=== PATIENT | male | born 1945 | race Caucasian/White ===

== ENCOUNTER 2017-09-07 15:00 | Inpatient (IN) | payer MEDICARE, SELFPAY ==
[2017-09-07 16:26] LABS: #Basophils 0.1 thou/uL (0.0-0.2); #Lymphocytes 1.6 thou/uL (1.20-3.40); #Monocytes 0.6 thou/uL (0.11-0.59); #Neutrophils 4.6 thou/uL (1.40-6.50); %Basophils 1.1 % (0.0-1.0); %Eosinophils 0.4 % (0.0-10.0); %Lymphocytes 23.1 % (21.0-51.0); %Monocytes 9.2 % (0.0-10.0); %Neutrophils 66.3 % (42.0-75.0); Hemoglobin 17.4 g/dL (14.0-18.0); Mean Corpuscular HGB CONC 34.2 g/dL (32.0-36.0); Mean Corpuscular Hemoglobin 35.4 pg (27.0-31.0); Mean Platelet Volume 6.3 fL (7.4-10.4); Platelet Count 263 thou/uL (130-400); RBC Distribution Width 12.3 % (11.5-14.5); Red Blood Cell (RBC) Count 4.91 mill/uL (4.70-6.10)
[2017-09-07 16:34] LABS: Osmolality, Serum 237 mOsm/kg (280-295)
[2017-09-07 16:44] LABS: Anion Gap 13 mmol/L (10-20); BUN (Urea Nitrogen) 9 mg/dL (8.4-25.7); Calc. Creatinine Clearance 0 mL/min (70-130); Calcium 9.4 mg/dL (7.8-10.44); Carbon Dioxide 23 mmol/L (23-31); Chloride 82 mmol/L (98-107); Estimated GFR-MDRD Greater than 90; Glucose 90 mg/dL (83-110); Potassium 4.2 mmol/L (3.5-5.1)
[2017-09-07 16:48] LABS: Sodium 114 mmol/L (136-145)
[2017-09-07] MEDS ORDERED: Acetaminophen 325 MG TAB PO PRN (20:04)
[2017-09-07] MEDS ORDERED: Senokot 8.6 MG TAB PO PRN (20:04)
[2017-09-07] MEDS ORDERED: Guaifenesin DM 100-10/5 ML UDCUP PO PRN (20:04)
[2017-09-07] MEDS ORDERED: Multivitamins, Adult 10 ML, Folic Acid 1 MG, Thiamine HCl 100 MG in Dextrose 5 %-0.45 %... IV SCH ×4 (21:00)
[2017-09-07] MEDS: Lisinopril 10 MG TAB PO SCH (21:46)
[2017-09-07] MEDS: Famotidine 20 MG TAB PO SCH (21:46)
[2017-09-07] MEDS: Nicotine 21 MG PATCH TD SCH (21:46)
[2017-09-07] MEDS: Tamsulosin HCl 0.4 MG CAP PO SCH (21:47)
--- NOTE | 2017-09-07 23:29 | HP ---
REASON FOR ADMISSION: Hyponatremia, possible alcohol withdrawal. HISTORY OF PRESENTING ILLNESS: The patient states he had gone to see his primary care physician on Sunday Dr. Ghosh in [place], [place]. The reason he went was his blood pressure was erratic at home. So, he had his blood work done on Sunday. The results came back this morning and his primary care physician was concerned that his sodium was very low and asked him to go to the emergency room immediately. He went to [facility] from where he was transferred here for sodium of 114. The patient admits to drinking 8 beers a day and he starts around 12:00 noon. He states he is cutting down on his drinking. Prior to this, he was waking up around 8 to 8:30 and start to drink from 9:00 a.m. on. He states he has been doing this from the age of 19 years or so. He also smokes a pack of cigarettes a day. Has no complaints of any specific weakness as such, but his at bedside mentions that he has been feeling a bit dizzy and is also having increased tremor per . No complaints of chest pain or shortness of breath. No history of prior stroke. PAST MEDICAL AND SURGICAL HISTORY: Hypertension, lumbar spine surgery in the past. No prior history of stroke, dyslipidemia or coronary artery disease per patient. CURRENT MEDICATIONS: Norvasc 2.5 mg p.o. daily, which was started from Sunday; lisinopril 30 mg p.o. daily. ALLERGIES: No known drug allergies. PERSONAL HISTORY: Smokes one pack a day, drinks 8 beers a day. Does not abuse drugs. Lives with his . FAMILY HISTORY: Mom in her 90s and has had history of PR. Father was killed in a train accident. REVIEW OF SYSTEMS: The following complete review of systems was negative, unless otherwise mentioned in the HPI or below: Constitutional: Weight loss or gain, ability to conduct usual activities. Skin: Rash, itching. Eyes: Double vision, pain. ENT/Mouth: Nose bleeding, neck stiffness, pain, tenderness. Cardiovascular: Palpitations, dyspnea on exertion, orthopnea. Respiratory: Shortness of breath, wheezing, cough, hemoptysis, fever or night sweats. Gastrointestinal: Poor appetite, abdominal pain, heartburn, nausea, vomiting, constipation, or diarrhea. Genitourinary: Urgency, frequency, dysuria, nocturia. Musculoskeletal: Pain, swelling. Neurologic/Psychiatric: Anxiety, depression. Allergy/Immunologic: Skin rash, bleeding tendency. PHYSICAL EXAMINATION: GENERAL: The patient is a 71-year-old male, who is currently not in any acute distress. VITAL SIGNS: Blood pressure 180/66, pulse 80 per minute, respiratory rate 16 per minute, temperature 98.2 degrees Fahrenheit, saturating 98% on room air. NECK: Supple, no elevated JVD. HEENT: Eyes: Extraocular muscles are intact. Pupils are reacting to light. Oral cavity: Mucous membranes are dry. No exudates or congestion. CARDIOVASCULAR SYSTEM: S1 and S2 heard. Regular rhythm. RESPIRATORY SYSTEM: Air entry 1+ bilateral. Scattered rhonchi plus bilateral. ABDOMEN: Soft, bowel sounds heard. No tenderness, rigidity or guarding. EXTREMITIES: No peripheral edema or calf tenderness. VASCULAR SYSTEM: Peripheral pulses 1+ bilateral. No ischemic ulcerations or gangrene. CENTRAL NERVOUS SYSTEM: No gross focal deficits seen. The patient is fairly oriented. He has some intentional tremor, which he states it has been chronic, but at bedside states it is kind of a little worse than his usual. PSYCHIATRIC SYSTEM: The patient is a bit anxious, otherwise no hallucinations or delusions. LABORATORY DATA: Sodium 114, potassium 4.2, serum bicarbonate 23, chloride 82. BUN 9, creatinine 0.8, glucose 90. Serum osmolality 237. Urine osmolality 214. AST 45, ALT 35, total bilirubin 0.8, albumin is 4.2, lipase is 73. MCV is 104, H&H 17 and 50, platelet count 263, white count of 7 with 66% neutrophils. CLINICAL IMPRESSION AND PLAN: The patient will be admitted to medical floor for severe hyponatremia, possible alcohol withdrawal with early tremors, uncontrolled hypertension. He will be on fluid restriction and his hyponatremia likely is due to his drinking beer, almost 8-10 beers a day. He was a heavy drinker before and is cutting down number at present. He will be on fluid restriction up to 1200 mL per day. We will also obtain an MRI of the brain to rule out cerebrovascular accident. Echo for LV function. Of late, the patient has had some issues with passing urine per and we will obtain PSA levels as well. He will be on Flomax for the same. He will be on ASE protocol, banana bag at 40 mL an hour. Nicotine patch 21 mg transdermal daily, DuoNebs q.6 hourly We will closely monitor him to prevent florid alcohol withdrawal and delirium. I have explained the withdrawal symptoms to his and children at bedside. The patient has determined to quit alcohol drinking. We will continue to closely monitor him on medical floor. DONATO
[2017-09-07 23:57] LABS: Anion Gap 13 mmol/L (10-20); BUN (Urea Nitrogen) 10 mg/dL (8.4-25.7); Calc. Creatinine Clearance 90 mL/min (70-130); Carbon Dioxide 23 mmol/L (23-31); Chloride 83 mmol/L (98-107); Estimated GFR-MDRD Greater than 90; Glucose 117 mg/dL (83-110)
[2017-09-08 00:09] LABS: Sodium 115 mmol/L (136-145)
[2017-09-08] MEDS: FOLIC ACID IVPB SCH ×12 (00:14→22:04)
[2017-09-08] MEDS: MULTIVITAMINS IVPB SCH ×12 (00:14→22:04)
[2017-09-08] MEDS: THIAMINE HCL IVPB SCH ×12 (00:14→22:04)
[2017-09-08] MEDS: [UNRECOGNIZED DRUG - OTHER] IVPB SCH ×12 (00:14→22:04)
[2017-09-08 05:20] LABS: #Basophils 0.1 thou/uL (0.0-0.2); #Lymphocytes 2.2 thou/uL (1.20-3.40); #Monocytes 0.9 thou/uL (0.11-0.59); #Neutrophils 4.1 thou/uL (1.40-6.50); %Basophils 1.3 % (0.0-1.0); %Eosinophils 0.7 % (0.0-10.0); %Lymphocytes 29.5 % (21.0-51.0); %Monocytes 12.2 % (0.0-10.0); %Neutrophils 56.3 % (42.0-75.0); Hemoglobin 16.7 g/dL (14.0-18.0); Mean Corpuscular HGB CONC 35.2 g/dL (32.0-36.0); Mean Corpuscular Hemoglobin 36.2 pg (27.0-31.0); Mean Platelet Volume 6.6 fL (7.4-10.4); Platelet Count 258 thou/uL (130-400); RBC Distribution Width 12.1 % (11.5-14.5); Red Blood Cell (RBC) Count 4.63 mill/uL (4.70-6.10); White Blood Cell (WBC) Count 7.4 thou/uL (4.8-10.8)
[2017-09-08 05:49] LABS: Anion Gap 16 mmol/L (10-20); BUN (Urea Nitrogen) 9 mg/dL (8.4-25.7); Calc. Creatinine Clearance 93 mL/min (70-130); Calcium 9.4 mg/dL (7.8-10.44); Carbon Dioxide 22 mmol/L (23-31); Cardiac Risk 2.3 (Less than 4.5); Chloride 85 mmol/L (98-107); Cholesterol 108 mg/dl (< 200 Desired); Estimated GFR-MDRD Greater than 90; Glucose 100 mg/dL (83-110); HDL Cholesterol 46 mg/dL (>60 Neg Risk); LDL Cholesterol, Calculated 49 mg/dL; Potassium 3.9 mmol/L (3.5-5.1); Triglycerides 64 mg/dL (Less than 150)
[2017-09-08 05:51] LABS: Sodium 119 mmol/L (136-145)
--- NOTE | 2017-09-08 08:17 | CON ---
DATE OF CONSULTATION: 09/07/2017 CONSULTING PHYSICIAN: Madhuri Henderson M.D. REQUESTING PHYSICIAN: Lindsay Cat M.D. REASON FOR CONSULTATION: Hyponatremia. IMPRESSION: Severe hyponatremia. This is likely in the context of beer potomania, . PLAN: 1. Discontinue current IV fluids, which is relatively hypotonic; this solution is half normal saline . I would change this over to normal saline with thiamine. 2. Repeat sodium to be checked now. 3. If patient shows any neurologic symptoms. We will transfer patient to ICU and initiate hypertoni c saline. 4. We will change the diet to regular diet with increased amount of protein in the way of animal jong t. HISTORY OF PRESENT ILLNESS: History is that of a 71-year-old gentleman who has been drinking forever , sent over from the primary care physician with abnormal labs in this case hyponatremia. Patient dr inks about 5 to 6 cans of beer on daily basis according to him. Otherwise, the patient denies any ot her symptoms, denies any significant gait disturbance and mentating okay. As a result of this severe hyponatremia with a sodium of 114. Decision has been taken to involve Renal in the management of th is case. PAST MEDICAL HISTORY: Significant for alcohol abuse, hypertension. MEDICATIONS: Reviewed as documented on [employer]. ALLERGIES: No known drug allergies. FAMILY HISTORY: None significantly related to the presenting illness. PHYSICAL EXAMINATION: GENERAL: Patient was found not to be in any obvious distress. VITAL SIGNS: Afebrile with temperature 98.2, pulse 96, respiratory rate of 18, blood pressure 147/86 . HEENT: Unremarkable with moist oral mucosa. No conjunctival injection or icterus. NECK: Supple. CARDIOVASCULAR SYSTEM: First and second heart sounds were heard. RESPIRATORY SYSTEM: Clear to auscultation. DIGESTIVE SYSTEM: Revealed a benign abdomen with positive bowel sounds. EXTREMITIES: No peripheral edema. SKIN: No new gross rash. LYMPHATICS: No peripheral lymphadenopathy. SUMMARY: A 71-year-old gentleman with significant alcohol issues, who presented here as a transfer w ith severe hyponatremia. Thank you for this consultation. We will follow with you. Patient counseled on the need to stop dri nking heavy alcohol.
[2017-09-08] MEDS: Enoxaparin Sodium 40 MG/0.4 ML SYRINGE SC SCH (09:00)
[2017-09-08] MEDS: Amlodipine 10 MG TAB PO SCH (09:37)
[2017-09-08] MEDS: Famotidine 20 MG TAB PO SCH ×2 (09:38→20:44)
[2017-09-08] MEDS: Lisinopril 10 MG TAB PO SCH ×2 (09:38→20:44)
[2017-09-08] MEDS: Folic Acid 1 MG TAB PO SCH (10:00)
--- NOTE | 2017-09-08 13:12 | PDOC.PN ---
- Subjective Encounter Start Date: 09/08/17 Encounter Start Time: 12:00 Subjective: awake, responds well to verbal questions -: has tremors+ -: is amb in room - Objective Resuscitation Status: Resuscitation Status FULL:Full Resuscitation MAR Reviewed: Yes Vital Signs & Weight: Vital Signs (12 hours) Temp Pulse Resp BP BP BP Pulse Ox 09/08/17 09:38 148/75 H 09/08/17 09:37 77 148/75 H 09/08/17 08:02 77 16 97 09/08/17 08:00 98.2 F 89 16 09/08/17 07:39 98.2 F 89 16 148/75 H 98 09/08/17 04:00 98.6 F 94 20 159/85 H 159/85 H 98 09/08/17 03:00 94 L Weight Weight 164 lb 10.965 oz I&O: 09/07/17 09/08/17 09/09/17 06:59 06:59 06:59 Intake Total 1050 Balance 1050 Result Diagrams: 09/08/17 04:06 09/08/17 04:06 Phys Exam - Physical Examination HEENT: PERRLA, moist MMs Neck: no JVD, supple Respiratory: no wheezing, no rales Cardiovascular: RRR, no significant murmur Gastrointestinal: soft, non-tender, positive bowel sounds Musculoskeletal: no edema, pulses present Neurological: non-focal, moves all 4 limbs Psychiatric: A&O x 3 Dx/Plan (1) Hyponatremia Code(s): E87.1 - HYPO-OSMOLALITY AND HYPONATREMIA Status: Acute (2) Alcohol abuse Code(s): F10.10 - ALCOHOL ABUSE, UNCOMPLICATED Status: Chronic (3) Tobacco abuse Code(s): Z72.0 - TOBACCO USE Status: Chronic (4) HTN (hypertension) Code(s): I10 - ESSENTIAL (PRIMARY) HYPERTENSION Status: Chronic Qualifiers: Hypertension type: essential hypertension Qualified Code(s): I10 - Essential (primary) hypertension (5) BPH (benign prostatic hyperplasia) Code(s): N40.0 - BENIGN PROSTATIC HYPERPLASIA WITHOUT LOWER URINRY TRACT SYMP Status: Suspected Qualifiers: Lower urinary tract symptom presence: symptoms present Lower urinary tract symptom detail: unspecified Qualified Code(s): N40.1 - Benign prostatic hyperplasia with lower urinary tract symptoms - Plan is on normal saline @100mls/hr -: norvasc and lisinopril, htn is better controlled -: flomax -: watch for delerium/kriss withdrawal -: on ASE protocol for alc abuse, await MRI, echo results * . Review of Systems - Medications/Allergies Allergies/Adverse Reactions: Allergies Allergy/AdvReac Type Severity Reaction Status Date / Time No Known Drug Allergies Allergy Verified 09/07/17 21:56 Medications: Current Medications Acetaminophen (Tylenol) 650 mg PO Q4H PRN PRN Reason: Headache/Fever or Pain Albuterol/Ipratropium (Duoneb) 3 ml NEB [id number] [facility] Last Admin: 09/08/17 08:02 Dose: 3 ml Amlodipine Besylate (Norvasc) 10 mg PO DAILY [facility] Last Admin: 09/08/17 09:37 Dose: 10 mg Enoxaparin Sodium (Lovenox) 40 mg SC 0900 [facility] Last Admin: 09/08/17 09:00 Dose: Not Given Famotidine (Pepcid) 20 mg PO BID [facility] Last Admin: 09/08/17 09:38 Dose: 20 mg Folic Acid (Folvite) 1 mg PO DAILY [facility] Last Admin: 09/08/17 10:00 Dose: Not Given Guaifenesin/Dextromethorphan (Robitussin Dm) 15 ml PO Q4H PRN PRN Reason: Cough Thiamine HCl 100 mg/Multivitamins 10 ml/ Folic Acid 1 mg/ Sodium Chloride 1, 011.2 mls @ 100 mls/hr IVPB .Q10H7M [facility] Last Admin: 09/08/17 11:15 Dose: 1,011.2 mls Lisinopril (Zestril) 10 mg PO BID [facility] Last Admin: 09/08/17 09:38 Dose: 10 mg Nicotine (Nicoderm Patch) 21 mg TD Q24HR [facility] Last Admin: 09/07/17 21:46 Dose: 21 mg Senna (Senokot) 2 tab PO HSPRN PRN PRN Reason: Constipation Tamsulosin HCl (Flomax) 0.4 mg PO HS [facility] Last Admin: 09/07/17 21:47 Dose: Not Given Thiamine HCl (Thiamine) 100 mg PO DAILY [facility] Last Admin: 09/08/17 10:00 Dose: Not Given
--- NOTE | 2017-09-08 13:33 | MRI ---
MRI BRAIN NONCONTRAST: HISTORY: CVA. FINDINGS: No comparison. There is no evidence of acute intracranial hemorrhage or infarct. Chronic ischemic s mall-vessel disease is apparent throughout the periventricular white matter of each cerebral hemisphe re. A 0.9 cm arachnoid cyst abuts the posterior aspect of the falx, just to the right of midline at the frontoparietal level. Visualized paranasal sinuses remain well aerated. IMPRESSION: Chronic ischemic small-vessel disease. No acute intracranial abnormalities are demonstrated. POS: JESIKA
[2017-09-08] MEDS: Nicotine 21 MG PATCH TD SCH (20:40)
[2017-09-08] MEDS: Tamsulosin HCl 0.4 MG CAP PO SCH (20:44)
[2017-09-09 06:18] LABS: Anion Gap 12 mmol/L (10-20); BUN (Urea Nitrogen) 6 mg/dL (8.4-25.7); Calc. Creatinine Clearance 91 mL/min (70-130); Calcium 9.4 mg/dL (7.8-10.44); Carbon Dioxide 21 mmol/L (23-31); Chloride 100 mmol/L (98-107); Estimated GFR-MDRD Greater than 90; Glucose 114 mg/dL (83-110); Potassium 3.7 mmol/L (3.5-5.1); Sodium 129 mmol/L (136-145)
[2017-09-09] MEDS: Amlodipine 10 MG TAB PO SCH (08:17)
[2017-09-09] MEDS: Folic Acid 1 MG TAB PO SCH (08:17)
[2017-09-09] MEDS: Famotidine 20 MG TAB PO SCH ×2 (08:17→20:42)
[2017-09-09] MEDS: Enoxaparin Sodium 40 MG/0.4 ML SYRINGE SC SCH (08:17)
[2017-09-09] MEDS: [UNRECOGNIZED DRUG - OTHER] IVPB SCH ×4 (08:18)
[2017-09-09] MEDS: Lisinopril 10 MG TAB PO SCH ×2 (08:18→20:41)
[2017-09-09] MEDS: FOLIC ACID IVPB SCH ×4 (08:18)
[2017-09-09] MEDS: MULTIVITAMINS IVPB SCH ×4 (08:18)
[2017-09-09] MEDS: THIAMINE HCL IVPB SCH ×4 (08:18)
[2017-09-09 09:00] LABS: Magnesium 1.8 mg/dL (1.6-2.6); Phosphorus 3.4 mg/dL (2.3-4.7)
--- NOTE | 2017-09-09 15:02 | PDOC.PN ---
- Subjective Encounter Start Date: 09/09/17 Encounter Start Time: 15:00 Subjective: reports that he feels better.agreeable for Op detox but not rehab -: denies hallucinations. nursing reports better ASE score - Objective Resuscitation Status: Resuscitation Status FULL:Full Resuscitation MAR Reviewed: Yes Vital Signs & Weight: Vital Signs (12 hours) Temp Pulse Resp BP BP BP Pulse Ox 09/09/17 12:01 97.6 F 89 16 150/103 H 96 09/09/17 12:00 150/103 H 09/09/17 08:18 118/73 09/09/17 08:17 94 118/73 09/09/17 08:00 98.1 F 94 16 118/73 99 09/09/17 07:16 94 15 95 09/09/17 07:12 98.1 F 99 16 118/73 99 09/09/17 04:00 98.1 F 97 20 128/75 128/75 95 Weight Weight 164 lb 0.383 oz I&O: 09/08/17 09/09/17 09/10/17 06:59 06:59 06:59 Intake Total 1050 1400 Balance 1050 1400 Result Diagrams: 09/08/17 04:06 09/09/17 05:31 Additional Labs: Laboratory Tests 09/07/17 09/07/17 09/07/17 16:00 16:13 16:13 Serum Osmolality 237 L* Triglycerides Cholesterol LDL Cholesterol, Calc HDL Cholesterol Prostate Specific Ag 1.06 Urine Osmolality 214 L 09/08/17 04:06 Serum Osmolality Triglycerides 64 Cholesterol 108 LDL Cholesterol, Calc 49 HDL Cholesterol 46 Prostate Specific Ag Urine Osmolality Radiology Reviewed by me: Yes (MRI brain-chr ischemic changes) Phys Exam - Physical Examination Constitutional: NAD HEENT: PERRLA, moist MMs, sclera anicteric, oral pharynx no lesions Neck: no JVD Respiratory: no wheezing, clear to auscultation bilateral Cardiovascular: RRR, no significant murmur Gastrointestinal: soft, non-tender, no distention, positive bowel sounds Musculoskeletal: no edema, pulses present Neurological: non-focal, normal sensation, moves all 4 limbs Psychiatric: normal affect, A&O x 3 Skin: no rash Dx/Plan (1) Hyponatremia Code(s): E87.1 - HYPO-OSMOLALITY AND HYPONATREMIA Status: Acute (2) Alcohol abuse Code(s): F10.10 - ALCOHOL ABUSE, UNCOMPLICATED Status: Chronic (3) HTN (hypertension) Code(s): I10 - ESSENTIAL (PRIMARY) HYPERTENSION Status: Chronic Qualifiers: Hypertension type: essential hypertension Qualified Code(s): I10 - Essential (primary) hypertension (4) Tobacco abuse Code(s): Z72.0 - TOBACCO USE Status: Chronic (5) BPH (benign prostatic hyperplasia) Code(s): N40.0 - BENIGN PROSTATIC HYPERPLASIA WITHOUT LOWER URINRY TRACT SYMP Status: Suspected Qualifiers: Lower urinary tract symptom presence: symptoms present Lower urinary tract symptom detail: unspecified Qualified Code(s): N40.1 - Benign prostatic hyperplasia with lower urinary tract symptoms (6) Alcohol withdrawal Code(s): F10.239 - ALCOHOL DEPENDENCE WITH WITHDRAWAL, UNSPECIFIED Status: Suspected - Plan out of bed/ambulate, DVT proph w/SCDs cont ASE protocol.Sodium inproved w NS.nephrology following -: avoid benzodiazipines as no s/s of active ETOH withdrawl -: likley home tomorrow am if Sodium better * . Review of Systems - Review of Systems Constitutional: negative: fever, chills, sweats, weakness, malaise, other Respiratory: negative: Cough, Dry, Shortness of Breath, Hemoptysis, SOB with Excertion, Pleuritic Pain, Sputum, Wheezing Cardiovascular: negative: chest pain, palpitations, orthopnea, paroxysmal nocturnal dyspnea, edema, light headedness, other Gastrointestinal: negative: Nausea, Vomiting, Abdominal Pain, Diarrhea, Constipation, Melena, Hematochezia, Other Genitourinary: negative: Dysuria, Frequency, Incontinence, Hematuria, Retention , Other Musculoskeletal: negative: Neck Pain, Shoulder Pain, Arm Pain, Back Pain, Hand Pain, Leg Pain, Foot Pain, Other Neurological: negative: Weakness, Numbness, Incoordination, Change in Speech, Confusion, Seizures, Other - Medications/Allergies Allergies/Adverse Reactions: Allergies Allergy/AdvReac Type Severity Reaction Status Date / Time No Known Drug Allergies Allergy Verified 09/07/17 21:56 Medications: Current Medications Acetaminophen (Tylenol) 650 mg PO Q4H PRN PRN Reason: Headache/Fever or Pain Albuterol/Ipratropium (Duoneb) 3 ml NEB [id number] [facility] Last Admin: 09/09/17 07:16 Dose: 3 ml Amlodipine Besylate (Norvasc) 10 mg PO DAILY [facility] Last Admin: 09/09/17 08:17 Dose: 10 mg Enoxaparin Sodium (Lovenox) 40 mg SC 0900 [facility] Last Admin: 09/09/17 08:17 Dose: 40 mg Famotidine (Pepcid) 20 mg PO BID [facility] Last Admin: 09/09/17 08:17 Dose: 20 mg Folic Acid (Folvite) 1 mg PO DAILY [facility] Last Admin: 09/09/17 08:17 Dose: 1 mg Guaifenesin/Dextromethorphan (Robitussin Dm) 15 ml PO Q4H PRN PRN Reason: Cough Lisinopril (Zestril) 10 mg PO BID [facility] Last Admin: 09/09/17 08:18 Dose: 10 mg Nicotine (Nicoderm Patch) 21 mg TD Q24HR [facility] Last Admin: 09/08/17 20:40 Dose: 21 mg Senna (Senokot) 2 tab PO HSPRN PRN PRN Reason: Constipation Tamsulosin HCl (Flomax) 0.4 mg PO HS [facility] Last Admin: 09/08/17 20:44 Dose: 0.4 mg Thiamine HCl (Thiamine) 100 mg PO DAILY [facility] Last Admin: 09/09/17 08:18 Dose: 100 mg
--- NOTE | 2017-09-09 18:38 | PRG ---
DATE OF SERVICE: 09/09/2017 SUBJECTIVE: The patient was seen and examined with no new complaint noted with the following vital s igns. OBJECTIVE: VITAL SIGNS: Afebrile with temperature 97.6, pulse 89, respiratory rate 16, blood pressure 150/103. HEENT: Unremarkable with moist oral mucosa. Neck is supple. No conjunctival injection or icterus. CARDIOVASCULAR: First and second heart sounds were heard. RESPIRATORY: Clear to auscultation. DIGESTIVE: Revealed a benign abdomen with positive bowel sounds. EXTREMITIES: No peripheral edema. IMPRESSION: 1. Hyponatremia in the context of beer potomania, responded well to normal saline infusion. 2. Alcohol abuse. PLAN: 1. Discontinue IV fluid. 2. Advised/counseled on the need to discontinue this lifestyle of alcohol consumption. 3. From the renal standpoint, the patient is good for discharge.
[2017-09-09] MEDS: Tamsulosin HCl 0.4 MG CAP PO SCH (20:41)
[2017-09-09] MEDS: Nicotine 21 MG PATCH TD SCH (20:44)
[2017-09-10 05:50] VITALS: BMI 22.2
[2017-09-10 05:51] LABS: Anion Gap 13 mmol/L (10-20); BUN (Urea Nitrogen) 5 mg/dL (8.4-25.7); Calc. Creatinine Clearance 94 mL/min (70-130); Calcium 9.1 mg/dL (7.8-10.44); Carbon Dioxide 19 mmol/L (23-31); Chloride 102 mmol/L (98-107); Estimated GFR-MDRD Greater than 90; Glucose 104 mg/dL (83-110); Potassium 3.7 mmol/L (3.5-5.1); Sodium 130 mmol/L (136-145)
[2017-09-10] MEDS: Famotidine 20 MG TAB PO SCH (08:12)
[2017-09-10] MEDS: Amlodipine 10 MG TAB PO SCH (08:12)
[2017-09-10] MEDS: Enoxaparin Sodium 40 MG/0.4 ML SYRINGE SC SCH (08:12)
[2017-09-10] MEDS: Folic Acid 1 MG TAB PO SCH (08:13)
[2017-09-10] MEDS: Lisinopril 10 MG TAB PO SCH (08:13)
[2017-09-10 12:34] VITALS: BP 153/68; TEMP 97.7
--- NOTE | 2017-09-10 22:54 | DIS ---
DATE OF ADMISSION: 09/07/2017 DATE OF DISCHARGE: 09/10/2017 PRIMARY CARE PHYSICIAN: Dr. Shreyas Boyle in [place], [place]. DISCHARGE DISPOSITION: Home. DISCHARGE DIAGNOSES: 1. Hyponatremia secondary to beer potomania. 2. Hypertension. 3. Alcohol abuse. 4. Tobacco abuse. 5. BPH. 6. Mild alcohol withdrawal symptoms. DISCHARGE MEDICATIONS: New medications, amlodipine dose has been increased to 10 mg daily, lisinopri l dose has been changed to 10 mg p.o. b.i.d., start folic acid 1 mg daily, start thiamine 100 mg mary lou y, nicotine patch 21 mg daily, Flomax 0.4 mg daily. PROCEDURES IN THE HOSPITAL: Include; 1. Transthoracic echocardiogram, which shows EF of 55% to 60% and so reversal suggestive of diastoli c dysfunction, [id number] aortic regurgitation. 2. MRI of the brain which is negative for any acute hemorrhage or infarction. Chronic small vessel ischemic changes are seen. CONSULTATIONS: Include Nephrology, Dr. Dhaliwal. HISTORY OF PRESENT ILLNESS: Mr. Wallis is a 71-year-old male with past medical history of hypertension , alcohol, and tobacco abuse who presented to the emergency room after he was sent by his primary car e physician for abnormal blood work. He was found to have very low sodium and was asked to go to the emergency room immediately. Upon presentation to the [facility] Emergency Room, he was found to have sodium of 114 and was transferred to [facility]. He gave a history of having some tremors an d dizziness according to the family present in the ER. He was otherwise hemodynamically stable excep t for the blood pressure 186/66. He was admitted to medical floor for severe hyponatremia and possib le alcohol withdrawal and uncontrolled hypertension. He was put on fluid restriction and Nephrology was consulted. An MRI and echo were also ordered to rule out CVA. He was also started on banana bag , ASE protocol, nebulizers, and nicotine patch. Please see admission history and physical for furthe r details. HOSPITAL COURSE: The patient did actually very well throughout the rest of his hospitalization. He did not have any significant alcohol withdrawal symptoms. He did not require any benzodiazepines for treatment. With regard to his sodium, he was continued on fluid restriction and he was treated with normal salin e with thiamine. Nephrology followed the patient along. His sodium improved from 114 to 130 on the day of discharge. He was walking in the hallways with the walking program and is hemodynamically sta ble today. His MRI and echo are essentially within normal limit except for mild diastolic dysfunctio n in the cardiac echo. On the day of discharge, I have seen and examined the patient. He has been counseled extensively abo ut alcohol abstinence and he appears willing to do that. I have also discussed the discharge plan wi th his , Ms. Gomez over the phone. His home medications were adjusted based on his blood pressure s as above. PHYSICAL EXAMINATION: This morning his physical exam include: VITAL SIGNS: Temperature 97.7, pulse of 86, respirations 14, saturating 99% on room air, blood press ure 153/68. GENERAL: No acute distress. He is just coming back from his work. PSYCHIATRIC: He denies any hallucinations. He does not have any confusion. EXTREMITIES: No asterixis noticed. CHEST: Clear to auscultation bilaterally. Rate and rhythm is regular. NEUROLOGIC: Nonfocal At this time, he will be discharged from the hospital under the care of his primary care physician. Medication prescriptions were provided. Total time spent in the discharge was 32 minutes.
== END 2017-09-10 12:57 | disposition home or self-care (01) | DRG 641 ==
LOC: ERS 15:00 → OBSVTOIN 19:50 → T4-B 19:50
PROVIDERS: ADMIT Internal Medicine; ATTEND Internal Medicine
DX: E87.1 Hypo-osmolality and hyponatremia (principal); F10.230 Alcohol dependence with withdrawal, uncomplicated; I10 Essential (primary) hypertension; F17.210 Nicotine dependence, cigarettes, uncomplicated; N40.1 Benign prostatic hyperplasia with lower urinary tract symptoms
CPT/HCPCS: 36415; 70551; 80048; 80061; 83735; 83930; 83935; 84100; 84153; 85025; 90471; 93306; 94640; J1650; J3411; J7042; J7050; J7620